=== PATIENT | male | born 1960 | race Caucasian/White ===

== ENCOUNTER → 2018-06-03 | Outpatient (CLI) | payer OTHER ==
[~2018-06-03] VITALS: Ht 188 cm; Wt 102.1 kg
[~2018-06-03] MED LIST: ALEVE220 M1 PO; ASA81BEC PO; ATORVASTATIN CA40 MG PO; AUGMENTIN 875-1 EACH PO; BRILINTA90 MG PO; CARVEDILOL3.125 MG PO; CHANTIX1 MG PO; LISINOPRIL2.5 MG PO; MECLIZINE HCL25 M1 PO; MELOXICAM15 MG PO; MOBIC15 MG PO; NITROGLYCERIN0.4 MG SL; PERCOCET; REPATHA PU420 MG/3.5 SUBQ; ZOCOR40 MG PO
[2018-06-03 10:13] VITALS: BP 141/96
[2018-06-03 10:25] LABS: HEMATOCRIT 47.3 % (42.0-52.0); HEMOGLOBIN 16.1 gm/dL (14.0-18.0); MCH 32.9 pg (26.0-34.0); MCV 96.8 fL (80.0-100.0); MPV 7.5 fl. (7.2-11.1); RBC 4.89 mil/uL (4.50-6.00); RDW-CV 13.2 % (10.5-14.5); WBC 4.8 thou/uL (4.0-11.0)
[2018-06-03 10:41] LABS: ANION GAP 7 mmol/L (7-16); BUN 21 mg/dL (7-18); CALCIUM 8.5 mg/dL (8.5-10.1); CHLORIDE 107 mmol/L (98-107); CO2 27 mmol/L (21-32); CREATININE 0.9 mg/dL (0.6-1.3); GLUCOSE 93 mg/dL (70-99); SODIUM 141 mmol/L (136-145)
[2018-06-03 10:46] LABS: ALBUMIN 3.8 g/dL (3.4-5.0); ALKALINE PHOSPHATASE 71 U/L (46-116); SGOT 16 U/L (15-37); SGPT 25 U/L (30-65); TOTAL BILIRUBIN 0.4 mg/dL (<0.1-1.0)
[2018-06-03 10:59] LABS: INR 1.1; PROTIME 10.9 Seconds (9.20-11.50)
[2018-06-03 11:10] LABS: CHOLESTEROL 131 mg/dL (<200); HDL CHOLESTEROL 37 mg/dL (>40); LDL CHOLESTEROL 75 mg/dL (<100); TC:HDL 3.5 Ratio (Not establshd); TRIGLYCERIDE 96 mg/dL (<150); VLDL 19 mg/dL (<40)
[2018-06-03 11:17] LABS: SERUM ASSESSMENT Clear
[2018-06-03 12:14] VITALS: BP 114/82
--- NOTE | 2018-06-03 12:25 | EKG ---
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: [facility] : 1960 Requested By: Robin Jolly Order Number: [id number] Reading MD: Darrin Medina Measurements Intervals Stewart Rate: 90 P: 21 KS: 153 QRS: 19 QRSD: 100 T: -2 QT: 360 QTc: 441 Interpretive Statements Sinus rhythm Compared to ECG 12/30/2013 08:14:24 Ventricular premature complex(es) no longer present ST (T wave) deviation no longer present Possible ischemia no longer present Electronically Signed On 06-03-2018 12:25:33 [employer] RESEARCH SCIENTIST by Darrin Medina [email or web address] <ELECTRONICALLY SIGNED> By: Darrin Medina MD, [facility] 06/03/18 1225 1020 1020 Darrin Medina MD, [facility] /EPI
[2018-06-03 12:33] VITALS: BP 113/77
[2018-06-03 12:48] VITALS: BP 121/87
[2018-06-03 14:00] VITALS: BP 116/82
--- NOTE | 2018-06-15 13:03 | CARD ---
[address] [address] CARDIAC CATH REPORT Name: CHELSIE TORRES Room: [facility]#: [id number] Admission: 06/03/18 Attend Phys: Robin Jolly MD Discharge: Date of : 64 Report #: [id number] THIS REPORT FOR: //name// APPROVED REPORT Study performed: 06/03/2018 10:08:51 Patient Details Patient Status: Out-Patient Room #: The patient is a 58 year-old male Event Personnel Robin Jolly Income Tax Analyst, Rema Bridges RN Nuclear Logging Engineer, David Young, Mag Parker RTR Scrub Procedures Performed Left Heart Cath w/or w/o Coronaries Procedure Narrative A Slender Glidesheath sheath was inserted into the right radial artery. Coronary angiography was performed using coronary diagnostic catheters. The right coronary system was accessed and visualized with a Diagnostic [place] 4.0 6fr catheter. The left coronary system was accessed and visualized with a Diagnostic [place] 4.0 6fr catheter. The left ventricle was accessed and visualized with a Diagnostic PC: Pig 6fr catheter. Left ventricular/Aortic Valve gradient assessed via catheter pullback. Closure device was deployed with a Fr Vasc-Band Reg 24cm. The patient tolerated the procedure well and there were no complications associated with the procedure. Intraoperative Conscious Sedation Sedation start time: 11:33 Case end Time: 11:46 Fentanyl 25 mcg Versed 1 mg Fluoro Time: 2.1 minutes Dose: DAP 14272 cGycm2 877 mGy Contrast Type and Amount: Omnipaque 80 ml Coronary Angiography The patient's coronary anatomy is co- dominant. Diagnostic Cath Left Main Normal LAD The mid LAD has a widely patent stent [place] [address] CARDIAC CATH REPORT Name: MACARIONessaCHELSIE E Room: [facility]#: [id number] Admission: 06/03/18 Attend Phys: Robin Jolly MD Discharge: Date of : 64 Report #: [id number] distal vessel is free of significant disease. Diagonal 1 50% ostial stenosis. Diagonal 2 Normal Circumflex Normal in the proximal mid and distal portions. OM1 Normal. OM2 Totally occluded at the ostium. The distal vessel fills by left to left collaterals. OM3 Normal. L ALEXANDER Normal. Right Coronary Normal in the proximal mid and distal portion. R PDA Normal and small in caliber. Left Ventriculography The left ventricle is normal in size with normal contractility. The left ventricular ejection fraction is estimated to be >70%. Hemodynamics The aortic pressure is 105/66 mmHg with a mean of 70 mmHg. The left ventricular pressure is 104/52 mmHg with a mean of mmHg. The left ventricular end diastolic pressure is 11 mmHg. Conclusion 1. Widely patent stents in the mid left anterior sitting coronary artery. 2. 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 (This is chronic) 3. 50% ostial stenosis involving the first diagonal branch. 4. No other hemodynamically significant stenoses noted. 5. Normal left ventricular systolic function. 6. Normal left ventricular end-diastolic pressure. Recommendations 1. Continue aggressive medical management and risk factor modification. <ELECTRONICALLY SIGNED> By: Robin Jolly MD, [facility] 06/15/18 1303 1303 [id number] Jolly MD, FAC /INF
== END | disposition home or self-care (01) ==
LOC: M.CL 09:34
PROVIDERS: Internal Medicine Cardiovascular Disease
DX: I25.10 Atherosclerotic heart disease of native coronary artery without angina pectoris (principal); F17.210 Nicotine dependence, cigarettes, uncomplicated; Z98.890 Other specified postprocedural states; Z79.899 Other long term (current) drug therapy; Z88.8 Allergy status to other drugs, medicaments and biological substances; Z79.82 Long term (current) use of aspirin